=== PATIENT | female | born 1985 | race Caucasian/White ===

== ENCOUNTER 2016-09-20 23:46 | Inpatient (IN) | payer OTHER ==
[2016-09-21 00:19] VITALS: BMI 39.3
[2016-09-21] MEDS ORDERED: CEFAZOLIN SODIUM 2 GRAM DUPLEX 2 G in Premix (D5W) 50 ml 1 EACH IV ONE (00:58)
[2016-09-21] MEDS ORDERED: LACTATED RINGERS 1,000 ML IV PRN (00:58)
[2016-09-21] MEDS ORDERED: LACTATED RINGERS 1,000 ML IV SCH (01:00)
[2016-09-21] MEDS ORDERED: OXYTOCIN 10 UNITS/ML VIAL ONE (01:40)
[2016-09-21] MEDS ORDERED: PUMP TUBING ONE (01:40)
[2016-09-21] MEDS ORDERED: OXYTOCIN IN LR 0 ML IV ONE (01:40)
[2016-09-21] MEDS ORDERED: LIDOCAINE Viscous 2% 15 ML UDCUP ONE (01:40)
[2016-09-21] MEDS ORDERED: LIDOCAINE 1% (PRES FREE) 30 ML VIAL ONE (01:40)
[2016-09-21] MEDS ORDERED: MINERAL OIL 25 ML BOT ONE (01:40)
[2016-09-21] MEDS ORDERED: IV START KIT ONE (01:41)
[2016-09-21] MEDS ORDERED: LACTATED RINGERS 1,000 ML ONE (01:41)
[2016-09-21] MEDS ORDERED: CEFAZOLIN SODIUM 2 GRAM DUPLEX 50 ML IV ONE (01:42)
--- NOTE | 2016-09-21 02:55 | PCMAN ---
OB Admission Note - History : 2 Term: 1 : 0 Abortions (S&E): 0 Livin EDC:: 09/10/16 (by LMP and 9wk U/S) Gestational Age (weeks): 41 Days (#/7): 3 Admit Cervical Dilation:: 4 Admit Cervical Effacement (%):: 60 Admit Station:: -2 Membrane Status: Ruptured Rupture (Date): 09/20/16 (pos ferning, minimal pooling) Rupture (Time): 22:00 Membranes Comment:: Clear fluid Contractions: Yes Contraction Frequency:: q 3-6min, lasting 60-90s Heart Rate:: 145 (mod variability/accels present/decels absent) Status:: Cat I EFW:: 9lbs Summary of Course:: Onset to care at 7w3d x 17visits, BMI 33.6, TWG 45lbs, Dates by sure LMP and 1st trimester ultrasound. complicated by; GBS pos & PCN allergy (rxn as a baby, no anaphylaxis that patient is aware of) Rh neg (O neg), Received Rhogam on 06/23/16 HSV positive with an outbreak at 24wks, treated. Prophylaxis starting at 36 wks Elevated weight gain Postdates - reactive NSTs and EDWIN 22.7 Hx depression - no current medical management, has counseling established OB hx: x 1, LGA (10lbs), no issue with shoulder dystocia, prolonged second stage with some trauma from pain of childbirth. Reports small gush of fluid at approx 2200, with occasional strong contractions at time of arrival to [facility]. She desires unmedicated, low intervention . Is accompanied by her Maurice and marilin Garcia. Declines AMTSL. Was 4/60/-2 on at visit. - Labs Blood Type: O (-) negative (Recieved rhogam on 06/23/16) Rubella Status: Non-immune Abnormal Labs: HSV Positive (Acyclovir prophylaxis), Rubella Non-Immune/ Equivocal - Review of Systems ROS neg - Physical Exam General: Afebrile Psych/Mental Status: Mood/Affect Appropriate, Judgment/Insight Intact, Bonding Well Neurological: Grossly Intact, Alert, Oriented x 4, Normal Gait, Normal Speech Lungs: Clear to Auscultation Bilaterally Cardiovascular: Regular Rate and Rhythm Genitourinary: Normal Female Genitalia (No lesions) Extremities: Full ROM Skin: Normal Color, Warm, Dry, Intact - Problems (1) Spontaneous rupture of amniotic membranes Status: Acute Code: [id number]/Plan: A: with IUP at 41w4d FHT: 140/moderate variability/accels present/decels absent - Reactive NST on admit, very active baby. Appropriate for IA GBS pos & PCN allergy Rh neg (O neg), Received Rhogam on 06/23/16 HSV positive with an outbreak at 24wks, treated. Prophylaxis starting at 36 wks Elevated weight gain Postdates P: Admit to [facility] Initiate GBS antibiotic prophylaxis with Ancef 2g loading followed by 1g q 8hrs Intermittent Auscultation while appropriate. Encourage active movement, defer vaginal exams until antibiotic dose administered at minimum Anticipate
[2016-09-21 04:29] LABS: HEMATOCRIT 38.8 % (37.0-47.0); HEMOGLOBIN 12.8 gm/l (12.0-16.0); MEAN CORPUSCULAR HEMOGLOBIN 29.7 pg (27.0-31.0); RED CELL DISTRIBUTION WIDTH 13.6 % (11.5-14.5)
[2016-09-21] MEDS ORDERED: LIDOCAINE 1% (PRES FREE) 30 ML VIAL IF ONE (08:07)
[2016-09-21] MEDS ORDERED: IBUPROFEN 800 MG TABLET PO SCH (08:15)
[2016-09-21] MEDS ORDERED: CEFAZOLIN SODIUM 1 GRAM PREMIX 1 G in Premix (D5W) 50 ml 1 EACH IV SCH (09:00)
--- NOTE | 2016-09-21 09:15 | PCMDEL ---
Delivery Note - Labor 1st stage (hr/min):: 9 hours and 9 mins 2nd stage (hr/min):: 30 mins 3rd stage (hr/min):: 11 mins Pushed (hr/min):: 30 mins - Delivery Delivery (Date): 09/21/16 Delivery (Time): 07:39 Infant Gender: Male Position: OA Umbilical Cord: 3 Vessel, Nuchal Cord 1 Minute Total: 9 5 Minute Total: 9 Placenta:: Black EBL:: 325 Perineum:: 2nd degree Suture:: 3 0 vicryl Anesthesia/Meds:: Lidocaine Length ROM:: 9 hours 39 mins Comments:: Vaginal Delivery Note: Stage I: Patient is a 31 year-old with an TRINO of 09/10/16 who presents to L&D at 41 weeks and 4 days gestation. 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 Her GBS screen was Positive. Ancef was used for GBS prophylaxis due to penicillin allergy. The patient was admitted on 09/21/16 00:58. Membranes ruptured on 09/20/16 at 22:00 for clear fluid (when she was checked at approx 6:55 there was a bag felt around the baby. This was AROM'd for clear fluid. Shortly afterwards Taina started to push). Active labor progressed overnight. Taina had her and senior j2ee developer as support. She labored in a variety of positions. During transition she got in to hands and knees and then turned on her side to push. Induction/augmentation agents: SROM heart rate was 140's with IA. She was complete at 07:09. Anesthesia: Lidocaine for repair of perineum Stage II: Second stage was approximately 30 minutes in duration. She pushed effectively on her side and then switched to her back. She went on to effective spontaneous vaginal delivery vertex; baby required help with restitution. The shoulder delivered without complication. FOB helped with the . Body cord was noted. No shoulder dystocia evident. An episiotomy was not performed. Delayed cord clamping of five minutes undertaken. A baby was born at 07:39. Birthweight was pending. scores were 9 at one minute and 9 at five minutes. Stage III: Third stage was normal with spontaneous vaginal delivery of an intact placenta with a 3 vessel cord with central cord insertion. Her perineum and vagina were inspected and a second degree laceration was noted. This was repaired with vicryl 3-0 in usual fashion under local anesthesia. At the conclusion of the delivery the sponge and the needle count were correct. Estimated blood was 325 ml. Uterus firmed up nicely, midline. Active management of third stage of labor was not required. Complications: Possibly LGA.
[2016-09-21] MEDS ORDERED: OXYCODONE/ACETAMINOPHEN 5/325 MG TABLET PO PRN (10:03)
[2016-09-21] MEDS ORDERED: DOCUSATE SODIUM 100 MG CAPSULE PO PRN (10:03)
[2016-09-21] MEDS ORDERED: MAGNESIUM HYDROXIDE 30 ML UDCUP PO PRN (10:03)
[2016-09-21] MEDS ORDERED: CALCIUM CARBONATE 500 MG TAB.CHEW PO PRN (10:03)
[2016-09-21] MEDS ORDERED: MEASLES,MUMPS&RUBELLA VACCINE 0.5 ML VIAL SUB-Q V ONE (10:03)
[2016-09-21] MEDS ORDERED: BENZOCAINE/MENTHOL 60 APPLIC/BOT TP PRN (10:03)
[2016-09-21] MEDS ORDERED: LANOLIN 50 APPLIC/7G TUBE TP PRN (10:03)
[2016-09-21] MEDS ORDERED: ACETAMINOPHEN 325 MG TABLET PO PRN (10:03)
[2016-09-21] MEDS ORDERED: HYDROCODONE/ACETAMINOPHEN 5/325MG TABLET PO PRN (10:03)
[2016-09-21] MEDS ORDERED: RHOGAM 300 MCG SYRINGE IM ONE (15:34)
[2016-09-21] MEDS: IBUPROFEN 800 MG TABLET PO SCH (17:01)
[2016-09-22] MEDS: IBUPROFEN 800 MG TABLET PO SCH ×3 (02:14→17:42)
--- NOTE | 2016-09-22 09:03 | PDOC39B ---
Hospital Course: ADMIT DATE: 09/21/16 DISCHARGE DATE: 09/22/16 ADMISSION DIAGNOSES: Active Labor PROCEDURES: HISTORY OF PRESENT ILLNESS: 31 year old G2 T1 L1 at 41 weeks 4 days presenting with active labor. HOSPITAL COURSE: Stage I: Patient is a 31 year-old with an TRINO of 09/10/16 who presents to L&D at 41 weeks and 4 days gestation. 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 Her GBS screen was Positive. Ancef was used for GBS prophylaxis due to penicillin allergy. The patient was admitted on 09/21/16 00:58. Membranes ruptured on 09/20/16 at 22:00 for clear fluid (when she was checked at approx 6:55 there was a bag felt around the baby. This was AROM'd for clear fluid. Shortly afterwards Taina started to push). Active labor progressed overnight. Taina had her and brand ambassador as support. She labored in a variety of positions. During transition she got in to hands and knees and then turned on her side to push. Induction/augmentation agents: SROM heart rate was 140's with IA. She was complete at 07:09. Anesthesia: Lidocaine for repair of perineum Stage II: Second stage was approximately 30 minutes in duration. She pushed effectively on her side and then switched to her back. She went on to effective spontaneous vaginal delivery vertex; baby required help with restitution. The shoulder delivered without complication. FOB helped with the . Body cord was noted. No shoulder dystocia evident. An episiotomy was not performed. Delayed cord clamping of five minutes undertaken. A baby was born at 07:39. Birthweight was pending. scores were 9 at one minute and 9 at five minutes. Stage III: Third stage was normal with spontaneous vaginal delivery of an intact placenta with a 3 vessel cord with central cord insertion. Her perineum and vagina were inspected and a second degree laceration was noted. This was repaired with vicryl 3-0 in usual fashion under local anesthesia. At the conclusion of the delivery the sponge and the needle count were correct. Estimated blood was 325 ml. Uterus firmed up nicely, midline. Active management of third stage of labor was not required. Complications: LGA. : recovery has been stable and complicated only by . Baby latches and is frequently at the breast, lots of skin to skin time, but high suspicion for lip tie as Silvia has started getting blisters on her nipples. Silvia desires support and will seek care at the [facility] in [place] tomorrow and will have a one-on-one appointment on Tuesday (delay in immediate support due to short staff and scheduling limitations). Rx for breastpump given as she will need to pump for supply and given latch issues. Otherwise she is stable and appropriate for discharge. She is up ad lali without issue, her pain is well managed with ibuprofen and tylenol, and her bleeding is decreasing. handout was reviewed in addition to warning s/s. We reviewed her hx of mastitis and depression. Silvia is aware of s/s and when to call CNMs. Will follow up in 2 and 6wks. Plans vasectomy. By day of discharge the patient is stable, well and ready to go home. - Physical Exam Vital Signs: Temp Pulse Resp BP Pulse Ox 98.0 F 89 18 111/60 09/22/16 08:35 09/22/16 08:35 09/22/16 08:35 09/22/16 08:35 General: Afebrile Psych/Mental Status: Mood/Affect Appropriate, Judgment/Insight Intact, Bonding Well Neurological: Grossly Intact, Alert, Oriented x 4, Normal Gait, Normal Speech Lungs: Clear to Auscultation Bilaterally Cardiovascular: Regular Rate and Rhythm Breast: Soft, Skin intact, Tenderness, Nipples Intact, Other (nipple blisters, bilateral) Fundus: Firm, Midline, Below Umbilicus Lochia: Light - Discharge Diagnosis (1) (normal spontaneous vaginal delivery) Status: AcuteAssessment/Plan: A: Now , day #1 s/p exclusively with latch issues, likely lip tie involved stable recovery appropriate for discharge with follow up scheduled P: Reviewed warning s/s and when to call CNMs follow up with support group tomorrow, , and individual appointment on Tuesday. follow up with CNMs at 2wks and 6wks, plans vasectomy for BCM. Discharge home in stable condition with baby (2) disorder, delivered Status: AcuteAssessment/Plan: A: Now , day #1 s/p exclusively with latch issues, likely lip tie involved stable recovery appropriate for discharge with follow up scheduled P: Reviewed warning s/s and when to call CNMs follow up with support group tomorrow, , and individual appointment on Tuesday. Breast pump Rx given. follow up with CNMs at 2wks and 6wks, plans vasectomy for BCM. Discharge home in stable condition with baby - Discharge Plan Condition: Stable Disposition: Home Instruction Forms: Vaginal Discharge Instructions Additional Instructions: Midwifery 'After the ' handout given to patient. Pain management: Up to 800mg (4 tablets) Ibuprofen every 6 hours alternated with up to 650mg (2 tablets) Tylenol every 6 hours (taking one pain reliever option every 3 hours). Titrate dose down as able. Constipation: Recommended stool softener is over the counter Colace. Take as needed. Focus on hydration and high fiber diet. Follow-Up: Niki Cuello CNM [Certified Nurse Seasonal Customer Service Associate] - 10/04/16 10:40 am (in [place])
[2016-09-22 15:39] VITALS: BP 131/60
[2016-09-23] MEDS ORDERED: IV START KIT ONE (01:42)
== END 2016-09-22 18:30 | disposition home or self-care (01) | DRG 775 ==
LOC: FBC 23:46 → FBCOUT 23:46 → FBC 09-21 00:58 → FBCOUT 09-21 00:58
PROVIDERS: ADMIT Advanced Practice Midwife; ATTEND Advanced Practice Midwife
PROC: 10E0XZZ Delivery of Products of Conception, External Approach (ICD-10-PCS; principal; 2016-09-21)
PROC: 0KQM0ZZ Repair Perineum Muscle, Open Approach (ICD-10-PCS; 2016-09-21)
PROC: 10907ZC Drainage of Amniotic Fluid, Therapeutic from Products of Conception, Via Natural or Artificial Opening (ICD-10-PCS; 2016-09-21)
DX: O48.0 Post-term pregnancy (principal); O99.824 Streptococcus B carrier state complicating childbirth; O70.1 Second degree perineal laceration during delivery; O69.81X0 Labor and delivery complicated by cord around neck, without compression, not applicable or unspecified; O40.3XX0 Polyhydramnios, third trimester, not applicable or unspecified; Z88.0 Allergy status to penicillin; Z3A.41 41 weeks gestation of pregnancy; Z37.0 Single live birth

== ENCOUNTER 2016-09-24 14:58 | Outpatient (CLI) | payer OTHER | END 2016-09-24 14:59 | disposition home or self-care (01) | LOC: BABIESSH 14:58 | PROVIDERS: ATTEND Advanced Practice Midwife | DX: Z39.1 Encounter for care and examination of lactating mother (principal) ==

== ENCOUNTER 2016-09-28 08:59 | Outpatient (CLI) | payer OTHER | END 2016-09-28 09:00 | disposition home or self-care (01) | LOC: BABIESSH 08:59 | PROVIDERS: ATTEND Advanced Practice Midwife | DX: Z39.1 Encounter for care and examination of lactating mother (principal) ==

== ENCOUNTER 2016-10-05 14:50 | Outpatient (CLI) | payer OTHER | END 2016-10-05 14:51 | disposition home or self-care (01) | LOC: BABIESSH 14:50 | PROVIDERS: ATTEND Advanced Practice Midwife | DX: Z39.1 Encounter for care and examination of lactating mother (principal) ==